=== PATIENT | female | born 1955 | race Caucasian/White ===

== ENCOUNTER 2019-11-10 12:05 | Inpatient (IN) ==
[2019-11-10 13:21] LABS: BASO# 0.02 X1000 (0.0-0.2); BASO% 0.2 % (0.0-0.8); EOS# 0.06 X1000 (0.0-0.7); EOS% 0.5 % (0.0-10.0); HEMATOCRIT 40.6 % (37.0-47.0); HEMOGLOBIN 12.4 g/dL (12.0-16.0); IMM GRAN# 0.09 X1000 (0.0-0.04); IMM GRAN% 0.8 % (0.0-0.5); LYMPH# 1.84 X1000 (1.2-3.4); LYMPH% 16.3 % (20.5-51.1); MCH 27.4 PG (27-31); MCHC 30.5 g/dL (33-37); MCV 89.6 FL (81-99); MONO# 0.89 X1000 (0.11-0.59); MONO% 7.9 % (1.7-9.3); MPV 10.6 FL (7.4-10.4); NEUT# 8.42 X1000 (1.4-6.5); NEUT% 74.3 % (42.2-75.2); PLT 211 X1000 (130-400); RBC 4.53 XMIL (4.2-5.4); RDW 14.4 % (11.5-14.5); WBC 11.32 X1000 (4.8-10.8)
[2019-11-10 13:37] LABS: ALB/GLOB RATIO 1.7; CALCIUM 8.7 mg/dL (8.8-10.2); CREATININE 1.5 mg/dL (0.5-0.9); POTASSIUM 3.9 mmol/L (3.5-5.1); TOTAL BILIRUBIN 0.37 mg/dL (0.20-1.00); TOTAL PROTEIN 6.4 g/dL (6.3-8.3)
[2019-11-10 13:45] LABS: INR 1.01; PROTIME 13.4 Seconds (11.0-16.0)
[2019-11-10 13:46] LABS: PTT 28.5 Seconds (22.3-41.8)
[2019-11-10 16:08] LABS: ALLEN TEST YES; BE 13.1 mmoll (-3.0-3.0); BLOOD TYPE ARTERIAL; O2(CT) 17.4 mL/dL (15.0-23.0); O2HB 93.1 % (95.0-99.0); PO2(98.6) 68 mmHg (60-100); SAMPLE BLOOD; SAO2 95.9 % (95.0-100.0); THB 13.3 g/dL (11.5-17.4)
[2019-11-10 16:13] LABS: MODALITY CANNULA; PCO2(98.6) 66 mmHg (35-45)
[2019-11-11 03:25] LABS: URINE SOURCE CLEAN CATCH
[2019-11-11 03:38] LABS: BILIRUBIN URINE NEGATIVE (NEGATIVE); BLOOD URINE NEGATIVE (NEGATIVE); COLOR YELLOW; GLUCOSE URINE 200 mg/dL (NEGATIVE); KETONE URINE NEGATIVE (NEGATIVE); LEUKOCYTES URINE NEGATIVE (NEGATIVE); NITRITE URINE NEGATIVE (NEGATIVE); PH URINE 7.5; PROTEIN URINE NEGATIVE (NEGATIVE); SP GRAVITY URINE 1.016; TURBIDITY URINE CLEAR (CLEAR); UROBILINOGEN URINE NORMAL (NORMAL)
[2019-11-11 03:40] LABS: UR EPITHELIAL CELLS <10 /HPF (<10); URINE BACTERIA 1+ /HPF; URINE RBC <10 /HPF (<10); URINE WBC <10 /HPF (<10)
[2019-11-11 06:35] LABS: ALB/GLOB RATIO 1.5; ALBUMIN 3.7 g/dL (3.5-5.0); CALCIUM 8.3 mg/dL (8.8-10.2); CREATININE 1.1 mg/dL (0.5-0.9); POTASSIUM 4.5 mmol/L (3.5-5.1); TOTAL BILIRUBIN 0.29 mg/dL (0.20-1.00); TOTAL PROTEIN 6.1 g/dL (6.3-8.3)
[2019-11-11 06:47] LABS: T4 7.87 ug/dL (4.60-12.00); TSH 0.77 uIUmL (0.27-4.20)
[2019-11-12 06:26] LABS: CALCIUM 8.3 mg/dL (8.8-10.2); CREATININE 1.3 mg/dL (0.5-0.9); MAGNESIUM 2.4 mg/dL (1.5-2.7); POTASSIUM 4.8 mmol/L (3.5-5.1)
[2019-11-12 16:34] VITALS: BP 151/71
== END 2019-11-12 17:39 | disposition home or self-care (01) | DRG 205 ==
LOC: ED 12:05 → 2N 17:44
PROVIDERS: ADMIT Emergency Medicine; ATTEND Emergency Medicine